=== PATIENT | male | born 1980 | race Caucasian/White ===

== ENCOUNTER 2022-12-21 15:27 | Day surgery (SDC) | payer BC ==
[2022-12-21] MEDS ORDERED: Sodium Chloride 0.9(Preservative Free) 10 ML IJ ONE (15:28)
[2022-12-21] MEDS ORDERED: Decadron 4 MG INJ IV ONE (15:28)
[2022-12-21] MEDS ORDERED: LIDOCAINE HCL 1% 50 MG/5 ML VL PF IJ ONE (15:28)
[2022-12-21] MEDS ORDERED: Lactated Ringers 1,000 ML IV ONE (16:58)
--- NOTE | 2022-12-21 20:07 | XRAY ---
Indication: Cervical JODIE. Intraoperative fluoroscopy provided for 36 seconds. 6 digital spot images submitted for interpretation demonstrates posterior needle tip projecting posterior to cervical thoracic junction. Small amount of contrast injected for needle tip placement. Correlate with intraoperative findings/report.
--- NOTE | 2022-12-22 11:43 | XRAY ---
36 seconds of fluoroscopy was used in surgery for a cervical JODIE.
== END 2022-12-21 18:12 | disposition home or self-care (01) ==
LOC: SDC-PAIN 15:27
PROVIDERS: ATTEND Psychiatry & Neurology Pain Medicine
DX: M54.12 Radiculopathy, cervical region (principal); Z79.899 Other long term (current) drug therapy
CPT/HCPCS: 62321; 72040; 77003; J1100; J2001; Q9966

== ENCOUNTER 2024-08-26 05:51 | Day surgery (SDC) | payer BC ==
[2024-08-26] MEDS: Lactated Ringers 1,000 ML IV SCH (06:55)
[2024-08-26] MEDS ORDERED: Versed 2 MG/2 ML Injection ONE (08:07)
[2024-08-26] MEDS ORDERED: propofoL IV ONE (08:07)
[2024-08-26 08:51] VITALS: BP 104/89; PULSE 85; RESP 16; TEMP 97.3; O2SAT 96
--- NOTE | 2024-08-27 10:24 | OP ---
SURGERY DATE/TIME: 08/26/2024 [id number] PREOPERATIVE DIAGNOSIS: Screening exam. POSTOPERATIVE DIAGNOSIS: Normal exam. PROCEDURE: Colonoscopy. SURGEON: Jamari Torres MD MEDICATION: Given by the anesthesia department. INDICATIONS: The patient is a 43-year-old white male patient presenting now for screening colonoscopy. The patient presents due to his mother having had a colostomy in her 30s of unknown disease process, thought to possibly be cancer. The patient was apprised of the risks of the procedure including risks of perforation, phlebitis, untoward reaction to medication, bleeding, and missed lesions. The patient verbalized his understanding and desired to have the procedure performed. DESCRIPTION OF PROCEDURE AND FINDINGS: The patient was given medication by the anesthesia department. He had continuous pulse oximetry, ECG monitoring, and intermittent blood pressure monitoring during the examination. He was placed in the left lateral decubitus position. Digital rectal examination was performed and revealed normal anal sphincter tone and no masses, normal prostate. The flexible Olympus videocolonoscope was used to intubate the rectum. A view of the colon was developed sequentially to the cecum. Upon insertion and withdrawal, no mucosal lesions were encountered, and the scope was removed from the patient who tolerated the procedure well and sent back to outpatient recovery in good condition. The prep was noted to be fair to good.
== END 2024-08-26 09:08 | disposition home or self-care (01) ==
LOC: SDC 05:51
PROVIDERS: ATTEND Family Medicine
DX: Z12.11 Encounter for screening for malignant neoplasm of colon (principal)
CPT/HCPCS: J2250; J2704